=== PATIENT | female | born 1980 | race Caucasian/White ===

== ENCOUNTER 2017-08-25 19:35 | Emergency (ER) | payer OTHER ==
[~2017-08-25] VITALS: Ht 154.9 cm; Wt 59.0 kg
[2017-08-25] MEDS ORDERED: ONDANSETRON ODT 4 MG TAB.RAPDIS ONE (19:44)
[2017-08-25] MEDS ORDERED: LIDO:MAALOX 1:1 20 ML SINGLE DOSE ONE (19:57)
[2017-08-25] MEDS ORDERED: IV NORMAL SALINE 1,000ML 1,000 ML IV SCH (20:06)
--- NOTE | 2017-08-25 20:12 | PHYS DOC ---
General Chief Complaint: ABDOMINAL PAIN Stated Complaint: ABD PAIN Time Seen by MD: 19:55 Source: patient Exam Limitations: no limitations Problems: History of Present Illness Initial Comments Pt is 36/F to ED c/o abdominal pain. Pt states pain started approx 1pm today, last PO intake a few "juan antonio grahams" 1230 today. Last BM this am "normal." Pt c/o severe epigastric pain started mild but worsened thru day since 1pm. She 's had some nausea no vomitting, states it's located epigastric but radiates " up under my ribs on the sides." Had GB US in past for same pain (one episode prior) which was negative. She has 9mos child is , follows [facility]. Timing/Duration: 4-6 hours Severity: moderate Modifying Factors: improves with other Associated Symptoms: nausea/vomiting, other Allergies: Coded Allergies: No Known Drug Allergies (Unverified , 08/25/17) Past Medical History Medical History: other (anxiety, GERD) Surgical History: noncontributory (CS, breast augmentation) Social History Smoker: non-smoker Alcohol: none Drugs: none Review of Systems Constitutional: denies chills, denies diaphoresis, denies fever, denies malaise Respiratory: denies cough, denies shortness of breath Cardiovascular: denies chest pain, denies palpitations Gastrointestinal: see HPI Genitourinary: denies dysuria, denies frequency, denies hematuria Musculoskeletal: denies back pain, denies joint swelling, denies neck pain Psychiatric/Neurological: denies headache, denies numbness, denies paresthesia Hematologic/Lymphatic: denies blood clots, denies easy bleeding, denies easy bruising Physical Exam General Appearance: WD/WN, moderate distress Eyes: bilateral eye normal inspection, bilateral eye PERRL, bilateral eye EOMI Ear, Nose, Throat: hearing grossly normal, normal ENT inspection Neck: non-tender, supple Respiratory: normal breath sounds, no respiratory distress Cardiovascular: normal peripheral pulses, regular rate, rhythm Gastrointestinal: soft (ND, BS diminished, epigastric TTP, palpation of RLQ reproduces epigastric tenderness, no r/g/mass) Back: no CVA tenderness, no vertebral tenderness Extremities: non-tender, normal inspection Neurologic/Psychiatric: heel seat trimmer II-XII nml as tested, no motor/sensory deficits, alert, normal mood/affect, oriented x 3 Skin: normal color, warm/dry Orders, Labs, Meds PATIENT: CLARENCE CARPIO ACCOUNT: [id number] : 1980 LOCATION: ER AGE: 36 SEX: F EXAM STATUS: REG ER ORD. PHYSICIAN: NAOMIE JENNINGS DO REASON: epigastric/RLQ pain PROCEDURE: CT ABD PELV W/ IV CONTRST ONLY CT SCAN OF THE ABDOMEN AND PELVIS WITH IV CONTRAST. History: Mid abdominal cramping Comparison:None. Procedure: Contiguous axial images of the abdomen and pelvis were performed after the administration of 75 cc of Omni 300 IV contrast and without oral contrast. CT Abdomen with contrast: Findings: There is bilateral breast implants. Liver: Unremarkable Spleen: Unremarkable Pancreas: Unremarkable Adrenal Glands: Unremarkable Kidneys: Unremarkable There is no mass or lymphadenopathy. There is no free air. There is no free fluid. CT Pelvis with Contrast: Findings: The urinary bladder appears normal. There is no free fluid. There is no lymphadenopathy. The appendix is dilated to 11 mm and there is an enhancing thickened wall with minimal surrounding inflammation. The appendix is seen medial to the cecum in the mid pelvis. Impression: Abnormal study consistent with acute appendicitis. PQRS Compliance Statement: One or more of the following individualized dose reduction techniques were utilized for this examination: 1. Automated exposure control 2. Adjustment of the mA and/or kV according to patient size 3. Use of iterative reconstruction technique Electronically signed by: Mason Flood III, MD (08/25/2017 8:52 PM) [facility] DICTATED AND SIGNED BY: MASON FLOOD III, MD DATE: 08/25/172046 CC: PCP,NO; NAOMIE JENNINGS DO ~ WBC 12.1 otherwise reassuring labs/urine 2110: CT result acute appendicitis, 2g cefoxitin IV now has 1L NS IV bolus. 2112: I discussed pt with Dr King General Surgeon who requests pt be admitted to site promotion agent hospitalist at [facility] for anticipated OR in am. 2138: Dr Hills accepts [facility] patient for transfer via EMS to [facility]. Departure Time of Disposition: 21:15 Disposition: 02 XFER [id number]-TRM HOSP Diagnosis: acute appendicitis Condition: STABLE Additional Instructions: EMS transfer to [facility] Dr Hills is accepting Dr King General Surgery to consult for acute appendicitis in am. NAOMIE JENNINGS DO Aug 25, 2017 20:12
[2017-08-25] MEDS ORDERED: ONDANSETRON ODT 4 MG TAB.RAPDIS PO ONE (20:15)
[2017-08-25] MEDS ORDERED: LIDO:MAALOX 1:1 20 ML SINGLE DOSE PO ONE (20:15)
[2017-08-25] MEDS ORDERED: CONTRAST GIVEN MC PRN (20:15)
[2017-08-25] MEDS ORDERED: ONDANSETRON PF 4 MG/2 ML VIAL. IV ONE (20:15)
[2017-08-25] MEDS ORDERED: FAMOTIDINE 20 MG/2 ML VIAL IVP ONE (20:15)
[2017-08-25] MEDS ORDERED: IOHEXOL 300 MG/ML 75 ML VIAL. IV ONE (20:15)
[2017-08-25 20:20] LABS: BASO % 0 % (0-3); EOS # 0.1 x10^3/uL (0.0-0.7); EOS % 1 % (0-3); HEMATOCRIT 41.2 % (36.0-47.0); LYMPH # 2.7 x10^3/uL (1.0-4.8); LYMPH % 22 % (24-48); MEAN CORPUSCULAR HEMOGLOBIN 30 pg (25-35); MEAN CORPUSCULAR HGB CONC 34 g/dL (31-37); MEAN CORPUSCULAR VOLUME 88 fL (79-100); MONO # 0.6 x10^3/uL (0.0-1.1); MONO % 5 % (0-9); NEUT # 8.7 x10^3uL (1.8-7.7); NEUT % 72 % (31-73); PLATELET COUNT 237 x10^3/uL (140-400); RED CELL DISTRIBUTION WIDTH 12.8 % (11.5-14.5); WHITE BLOOD COUNT 12.1 x10^3/uL (4.0-11.0)
[2017-08-25 20:30] LABS: ALBUMIN 4.5 g/dL (3.4-5.0); ALBUMIN/GLOBULIN RATIO 1.2 (1.0-1.7); BACTERIA,URINE FEW /HPF (0-FEW); BILIRUBIN,URINE NEG (NEG); CLARITY,URINE CLEAR; COLOR,URINE YELLOW; CREATININE 0.6 mg/dL (0.6-1.0); GFR 114.4; GLUCOSE,URINE NEG (NEG); NITRITE,URINE NEG (NEG); POTASSIUM 3.6 mmol/L (3.5-5.1); RBC,URINE RARE /HPF (0-2); SQUAMOUS EPITHELIAL CELL,UR OCC /LPF; TOTAL BILIRUBIN 1.3 mg/dL (0.2-1.0); TOTAL PROTEIN 8.4 g/dL (6.4-8.2); UROBILINOGEN,URINE 0.2 mg/dL (0.2 mg/dL); WBC,URINE OCC /HPF (0-4)
--- NOTE | 2017-08-25 20:56 | RAD ---
CT SCAN OF THE ABDOMEN AND PELVIS WITH IV CONTRAST. History: Mid abdominal cramping Comparison:None. Procedure: Contiguous axial images of the abdomen and pelvis were performed after the administration of 75 cc of Omni 300 IV contrast and without oral contrast. CT Abdomen with contrast: Findings: There is bilateral breast implants. Liver: Unremarkable Spleen: Unremarkable Pancreas: Unremarkable Adrenal Glands: Unremarkable Kidneys: Unremarkable There is no mass or lymphadenopathy. There is no free air. There is no free fluid. CT Pelvis with Contrast: Findings: The urinary bladder appears normal. There is no free fluid. There is no lymphadenopathy. The appendix is dilated to 11 mm and there is an enhancing thickened wall with minimal surrounding inflammation. The appendix is seen medial to the cecum in the mid pelvis. Impression: Abnormal study consistent with acute appendicitis. PQRS Compliance Statement: One or more of the following individualized dose reduction techniques were utilized for this examination: 1. Automated exposure control 2. Adjustment of the mA and/or kV according to patient size 3. Use of iterative reconstruction technique Electronically signed by: Kp Cueto III, MD (08/25/2017 8:52 PM) [facility]
[2017-08-25 21:17] VITALS: BP 115/66
== END 2017-08-25 22:19 | disposition short-term general hospital (02) ==
LOC: ER 19:35
DX: K35.80 Unspecified acute appendicitis (principal); K21.9 Gastro-esophageal reflux disease without esophagitis; Z98.890 Other specified postprocedural states
CPT/HCPCS: 36415; 74177; 80053; 81001; 81025; 83690; 85025; 96361; 96365; 96375; 96376; 99285; J0694; J2405; J3010; Q0162; Q9967; S0028; J7030